=== PATIENT | male | born 1960 | race Caucasian/White ===

== ENCOUNTER → 2021-07-11 | Outpatient (CLI) | payer OTHER ==
[~2021-07-11] MED LIST: ADULT LOW DOSE81 MG PO; COZAAR 50 MG TA50 M1 PO; FLEXERIL; FLONASE 0.05%50 MCG NASAL; LORTAB 5-500 T1 EAC1 PO; PERCOCET 5-3251 EACH PO; PREDNISONE 20 M20 M1 PO; ROBAXIN500 MG PO; VICODIN 5-5001 EACH
== END ==
LOC: M.MRI 07:05
PROVIDERS: ATTEND Family Medicine
DX: M47.816 Spondylosis without myelopathy or radiculopathy, lumbar region (principal); M51.26 Other intervertebral disc displacement, lumbar region; M48.061 Spinal stenosis, lumbar region without neurogenic claudication; M47.817 Spondylosis without myelopathy or radiculopathy, lumbosacral region; M46.07 Spinal enthesopathy, lumbosacral region; M79.604 Pain in right leg